=== PATIENT | male | born 1985 | race Caucasian/White ===

== ENCOUNTER 2017-11-05 15:00 | Observation (INO) ==
[2017-11-05] MEDS ORDERED: IOPAMIDOL 100 ML BOTTLE IJ ONE (15:01)
[2017-11-05] MEDS ORDERED: 0.9 % SODIUM CHLORIDE 1,000 ML IV ONE (15:06)
[2017-11-05] MEDS ORDERED: ONDANSETRON 4 MG/2 ML VIAL IV ONE (15:06)
[2017-11-05] MEDS: HYDROmorphone 2 MG/ML SYRINGE IV PRN ×3 (15:23→21:43)
[2017-11-05 16:03] LABS: Basophils # (Auto) 0 K/mcL (0.0-0.3); Basophils % (Auto) 0.1 % (0.0-2.0); Eosinophils # (Auto) 0.1 K/mcL (0.0-0.7); Eosinophils % (Auto) 0.6 % (0.0-7.0); Granulocytes % (Auto) 83.6 % (38.0-78.0); Lymphocytes # (Auto) 1.6 K/mcL (1.5-4.8); Lymphocytes % (Auto) 10.1 % (15.5-49.0); Mean Cell Volume 87.2 fL (80.0-100.0); Mean Corpuscular HGB Conc 34.2 g/dL (31.0-36.0); Mean Corpuscular Hemoglobin 29.8 pg (26.0-34.0); Monocytes # (Auto) 0.9 K/mcL (0.1-0.9); Monocytes % (Auto) 5.6 % (1.0-12.0); Platelet Count 212 K/mcL (140-440); RBC 5.01 M/mcL (4.50-5.90)
--- NOTE | 2017-11-05 16:19 | Cat Scan Report ---
CLINICAL INFORMATION: Reason for Exam:no oral contrast, rlq pain, poss appy COMPARISON: None. TECHNIQUE: Following injection of intravenous contrast the patient was scanned during the portal venous phase from the diaphragm through the symphysis pubis. Sagittal and coronal reformats were created.. FINDINGS: Patient has a short appendix which is thickened and contains a 6 mm appendicolith. The appendix is 11 mm in transverse dimension. There is no inflammation of the surrounding fat. No ascites or free intraperitoneal air present. There is also no abscess. The liver, spleen, gallbladder, pancreas adrenals and kidneys are normal. There is no kidney stone. Large and small bowel normal in caliber. No abnormality seen in the bladder, prostate or seminal vesicles. The aorta is normal in caliber and there is no plaque formation. There is moderately severe disc space narrowing at L5-S1 with gas in the nucleus pulposus due to chronic degeneration. Mild disc space narrowing is present at L4-5. IMPRESSION: Acute appendicitis Ana Kearns was called with results Interpreted and Authenticated by: Jose Morfin 11/05/17
[2017-11-05 16:20] LABS: ALT/SGPT 26 U/l (0-40); Albumin 4.9 gm/dL (3.2-5.2); Albumin/Globulin Ratio 1.8 (1.0-2.3); Alkaline Phosphatase 88 U/L (39-117); Blood Urea Nitrogen 13 mg/dl (6-20)
[2017-11-05] MEDS ORDERED: cefTRIAXone 1 GM VIAL IV ONE (16:26)
--- NOTE | 2017-11-05 16:29 | Emergency Department Note ---
Abdominal Pain HPI - General Chief Complaint: Abdominal Pain Stated Complaint: RLQ pain Time Seen by Provider: 11/05/17 15:06 Source: patient Mode of arrival: ambulatory Limitations: no limitations - History of Present Illness HPI Narrative: 32-year-old male presents with right lower quadrant pain. He woke up at about 1 or 2 this morning with right lower quadrant pain. Worse with movement. He states he did eat a little bit of soup at 1:00 today but definitely decreased appetite. No nausea or vomiting. Has felt warm but unknown fever. No chills. No dysuria or frequency. No hematuria. Nothing seems to make the pain better but is definitely worse with movement or palpation. He went to [facility] care and then was sent here for further evaluation. - Related Data Home Medications Medication Instructions Recorded Confirmed No Known Home Meds [No Known Home 11/05/17 11/05/17 Meds] Allergies Allergy/AdvReac Type Severity Reaction Status Date / Time No Known Drug Allergies Allergy Verified 11/05/17 15:03 Review of Systems All systems ED: reviewed and negative except as stated. Abdominal Pain PMH - Past Medical History Medical history: Reports: no medical history Surgical history ED: Reports: no surgical history - Social History Smoking status: Never smoker Alcohol use: Reports: Rarely Drug use: Reports: none Physical Exam Limitations: no limitations General appearance: alert, in no apparent distress Head: atraumatic, normocephalic, normal inspection Eye: Present: normal appearance. Absent: conjunctival injection ENT: mucous membranes moist Neck: Present: normal inspection, trachea midline. Absent: tenderness, lymphadenopathy Chest: Present: normal inspection, symmetric chest wall rise Respiratory: Present: normal lung sounds bilaterally. Absent: respiratory distress, accessory muscle use Cardiovascular: Present: regular rate, normal heart sounds Abdominal: Present: soft, tenderness (Right lower quadrant.), guarding (Right lower quadrant), rebound (Right lower quadrant), normal bowel sounds. Absent: distention, mass Extremities: Present: normal inspection Neurological: Present: alert, oriented X3, normal gait Psychiatric: Present: normal affect, normal mood Skin: Present: warm, dry, intact, normal color. Absent: rash, cyanosis, diaphoresis, erythema Course Course Narrative: White count elevated at 16. CT report shows appendicitis. Dr. Clemons contacted. Agrees to admit patient for appendicitis. Vital Signs Temperature 98.6 F 11/05/17 15:03 Pulse Rate 79 11/05/17 15:03 Respiratory Rate 18 11/05/17 15:03 Blood Pressure 149/95 11/05/17 15:03 Pulse Oximetry (%) 100 11/05/17 15:03 Temperature 98.6 F 11/05/17 15:03 Pulse Rate 79 11/05/17 15:03 Respiratory Rate 18 11/05/17 15:03 Blood Pressure 149/95 11/05/17 15:03 Pulse Oximetry (%) 100 11/05/17 15:03 Abdominal Pain - Lab Data Result diagrams: 11/05/17 15:22 11/05/17 15:22 Lab Results 11/05/17 11/05/17 Range/Units 15:22 15:22 WBC 16.1 H (4.5-11.0) K/mcL RBC 5.01 (4.50-5.90) M/mcL Hgb 14.9 (13.5-16.5) g/dL Hct 43.7 (41.0-55.0) % MCV 87.2 (80.0-100.0) fL MCH 29.8 (26.0-34.0) pg MCHC 34.2 (31.0-36.0) g/dL RDW 12.0 (11.5-14.5) % Plt Count 212 (140-440) K/mcL MPV 8.4 (7.4-10.4) fL Gran % 83.6 H (38.0-78.0) % Lymph % (Auto) 10.1 L (15.5-49.0) % [place] % (Auto) 5.6 (1.0-12.0) % Eos % (Auto) 0.6 (0.0-7.0) % Baso % (Auto) 0.1 (0.0-2.0) % Gran # 13.4 H (1.8-8.0) K/mcL Lymph # (Auto) 1.6 (1.5-4.8) K/mcL [place] # (Auto) 0.9 (0.1-0.9) K/mcL Eos # (Auto) 0.1 (0.0-0.7) K/mcL Baso # (Auto) 0 (0.0-0.3) K/mcL Sodium 139 (133-145) mmol/L Potassium 3.8 (3.3-5.1) mmol/L Chloride 101 (96-108) mmol/L Carbon Dioxide 27 (22-30) mmol/L Anion Gap 11.0 (8-16) BUN 13 (6-20) mg/dl Creatinine 0.8 (0.7-1.2) mg/dl GFR Calculation 117 Glucose 101 (70-105) mg/dL Calcium 9.4 (8.6-10.4) mg/dl Total Bilirubin 0.7 (0.0-1.0) mg/dL AST 21 (0-37) U/l ALT 26 (0-40) U/l Alkaline Phosphatase 88 (39-117) U/L Total Protein 7.6 (5.9-8.4) gm/dL Albumin 4.9 (3.2-5.2) gm/dL Globulin 2.7 (2.2-3.7) gm/dL Albumin/Globulin Ratio 1.8 (1.0-2.3) Disposition 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
[2017-11-05] MEDS: ONDANSETRON 4 MG/2 ML VIAL IV PRN ×2 (17:37→21:42)
--- NOTE | 2017-11-05 18:55 | General Surg History&Physical ---
History of Present Illness Patient information: Note initiated : 11/05/17 at 6:53 pm Service Date, if different from initiated Date: [] Patient: Isidro Adams a 32 y/o M admitted on 11/05/17 for RLQ pain. Chief Complaint: [Right lower quadrant pain] HPI: Mr. Adams is a 32 year old M with history of acute onset of severe right sided abdominal pain about 3 AM. This was associated with nausea but no vomiting. The patient became more severe and he was seen in minor care and referred to the emergency room. He was noted to have a tender abdomen in the right lower quadrant with white blood count of 13,[address] evidence of appendicitis. He has significant right lower quadrant tenderness with guarding. He is admitted and will have appendectomy in the morning Review of Systems - Musculoskeletal back pain, radiating pain into limb Past History Past medical history: No chronic medical illness Past surgical history: No surgical procedures Past family history: Father age 62 with history of coronary artery disease Mother age 66 without illness Siblings alive and well without illness Past social history: Never smoker Occasional alcohol use Never drug use Employed Medications and Allergies Home Medications Medication Instructions Recorded Confirmed Type No Known Home Meds [No Known Home 11/05/17 11/05/17 History Meds] Allergies Allergy/AdvReac Type Severity Reaction Status Date / Time No Known Drug Allergies Allergy Verified 11/05/17 15:03 Exam Temp Pulse Resp BP Pulse Ox 98.1 F 65 16 149/88 100 11/05/17 17:47 11/05/17 17:04 11/05/17 17:47 11/05/17 17:47 11/05/17 17:47 - General physical appearance well developed, well nourished, no distress - Eyes PERRL, normal ocular movement - ENT normal pinna, normal nares, normal mucosa, no hearing loss, no congestion - Head Head exam IM: Present: atraumatic, normocephalic - Neck no masses, no bruits, trachea midline, no lymphadectomy, no venous distension - Cardiovascular Cardiovascular exam IM: Present: normal rate and rhythm - Respiratory normal expansion, normal respiratory effort, clear to percussion, clear to auscultation - Abdomen Abdomen: Present: soft, tender, bowel sounds, distended (Mild distention with good active bowel sounds; tenderness with guarding in right lower quadrant no palpable mass noted) Hernia: Present: none - Genitourinary Present: normal penis with no external lesions - Integumentary Present: no rash, no growths, no abnormal pigmentation - Neurologic Present: normal coordination, normal sensation - Musculoskeletal Present: normal gait, normal posture - Psychiatric Present: oriented to time, oriented to person, oriented to place, speech is normal, memory intact Assessment and Plan (1) Acute appendicitis Patient is made n.p.o. and started on antibiotics He is counseled for laparoscopic appendectomy in the morning. Status: Acute Qualifiers: Acute appendicitis type: with localized peritonitis Qualified Code(s): K35.3 - Acute appendicitis with localized peritonitis
[2017-11-05] MEDS: 0.9 % SODIUM CHLORIDE 1,000 ML IV SCH (19:44)
[2017-11-05] MEDS: cefTRIAXone 1 GM VIAL IV SCH (21:42)
[2017-11-06] MEDS: ONDANSETRON 4 MG/2 ML VIAL IV PRN ×2 (02:58→07:14)
[2017-11-06] MEDS: HYDROmorphone 2 MG/ML SYRINGE IV PRN ×8 (02:59→23:44)
[2017-11-06] MEDS: 0.9 % SODIUM CHLORIDE 1,000 ML IV SCH ×4 (03:02→21:51)
[2017-11-06] MEDS ORDERED: ROCURONIUM 10 MG/ML ML IV ONE (10:40)
[2017-11-06] MEDS ORDERED: PROPOFOL 200 MG/20 ML VIAL IV ONE (10:40)
[2017-11-06] MEDS ORDERED: DEXAMETHASONE 10 MG/ML VIAL IV ONE (10:40)
[2017-11-06] MEDS ORDERED: LIDOCAINE HCL/PF 100 MG/5 ML SYRINGE IV ONE (10:40)
[2017-11-06] MEDS ORDERED: KETOROLAC 30 MG/ML VIAL IV ONE (10:40)
[2017-11-06] MEDS ORDERED: MIDAZOLAM 5 MG/5 ML VIAL IV ONE (10:40)
[2017-11-06] MEDS ORDERED: ONDANSETRON 4 MG/2 ML VIAL IV ONE (10:40)
[2017-11-06] MEDS: cefTRIAXone 1 GM VIAL IV SCH (11:19)
--- NOTE | 2017-11-06 11:37 | Brief Operative Note ---
Date of procedure: 11/06/17 Pre-op diagnosis: acute appendicitis Post-op diagnosis: other (acute gangrenous appendicitis) Procedure: laparoscopic appendectomy Grafts/Implants: No Anesthesia: GETA Findings: acute gangrenous appendix without perforation or abscess Complications: none Surgeon: Jose D Clemons Estimated blood loss (cc): 10 Specimens Removed/Pathology: other (appendix) Condition: stable Disposition: PACU
[2017-11-06] MEDS ORDERED: ONDANSETRON 4 MG/2 ML VIAL IV PRN ×2 (11:44→12:06)
[2017-11-06] MEDS ORDERED: ATROPINE SULFATE 0.4 MG/ML VIAL IV PRN (12:06)
[2017-11-06] MEDS ORDERED: BENZOCAINE/MENTHOL 1 LOZENGE PO PRN (12:06)
[2017-11-06] MEDS ORDERED: ACETAMINOPHEN 1,000 MG/100 ML BOTTLE IV ONE (12:06)
[2017-11-06] MEDS ORDERED: diphenhydrAMINE 50 MG/ML VIAL IV PRN (12:06)
[2017-11-06] MEDS ORDERED: ePHEDrine 50 MG/ML AMPUL IV PRN (12:06)
[2017-11-06] MEDS ORDERED: METHOCARBAMOL 1,000 MG/10 ML VIAL IV PRN (12:06)
[2017-11-06] MEDS ORDERED: FLUMAZENIL 0.1 MG/ML ML IV PRN (12:06)
[2017-11-06] MEDS ORDERED: IPRATROPIUM/ALBUTEROL 3 ML AMPUL.NEB NEB PRN (12:06)
[2017-11-06] MEDS ORDERED: NALOXONE HCL 0.4 MG/ML VIAL IV PRN (12:06)
[2017-11-06] MEDS ORDERED: PROMETHAZINE 25 MG/ML VIAL IV PRN (12:06)
[2017-11-06] MEDS ORDERED: fentaNYL 100 MCG/2 ML VIAL IV PRN (12:06)
[2017-11-06] MEDS ORDERED: MEPERIDINE 25 MG/ML SYRINGE IV PRN (12:06)
[2017-11-06] MEDS: PIPERACILLIN SODIUM/TAZOBACTAM 3.375 GM in DEXTROSE 5% IN WATER 50 ML IV SCH ×3 (13:40→23:44)
[2017-11-06] MEDS: metroNIDAZOLE 500 MG/100 ML BAG IV SCH ×2 (14:40→21:52)
[2017-11-06] MEDS: 0.9 % SODIUM CHLORIDE 10 ML SYRINGE IV SCH ×2 (14:50→21:51)
[2017-11-07] MEDS: 0.9 % SODIUM CHLORIDE 1,000 ML IV SCH ×2 (02:47→12:27)
[2017-11-07] MEDS: HYDROmorphone 2 MG/ML SYRINGE IV PRN ×3 (02:57→08:03)
[2017-11-07] MEDS: PIPERACILLIN SODIUM/TAZOBACTAM 3.375 GM in DEXTROSE 5% IN WATER 50 ML IV SCH ×2 (05:29→12:28)
[2017-11-07] MEDS: 0.9 % SODIUM CHLORIDE 10 ML SYRINGE IV SCH ×2 (05:30→14:05)
[2017-11-07 05:59] LABS: Basophils # (Auto) 0 K/mcL (0.0-0.3); Basophils % (Auto) 0 % (0.0-2.0); Eosinophils # (Auto) 0 K/mcL (0.0-0.7); Eosinophils % (Auto) 0 % (0.0-7.0); Granulocytes % (Auto) 85.6 % (38.0-78.0); Lymphocytes # (Auto) 0.9 K/mcL (1.5-4.8); Lymphocytes % (Auto) 7.5 % (15.5-49.0); Mean Cell Volume 88.2 fL (80.0-100.0); Mean Corpuscular HGB Conc 34.5 g/dL (31.0-36.0); Mean Corpuscular Hemoglobin 30.4 pg (26.0-34.0); Monocytes # (Auto) 0.9 K/mcL (0.1-0.9); Monocytes % (Auto) 6.9 % (1.0-12.0); Platelet Count 150 K/mcL (140-440); RBC 3.82 M/mcL (4.50-5.90); Red Cell Distribution Width 12.3 % (11.5-14.5)
[2017-11-07] MEDS: metroNIDAZOLE 500 MG/100 ML BAG IV SCH ×2 (06:15→14:05)
[2017-11-07 06:33] LABS: ALT/SGPT 16 U/l (0-40); Albumin 3.8 gm/dL (3.2-5.2); Albumin/Globulin Ratio 1.9 (1.0-2.3); Alkaline Phosphatase 64 U/L (39-117); Bilirubin,Direct < 0.2 mg/dL (0.0-0.3); Blood Urea Nitrogen 12 mg/dl (6-20); Gamma Glutamyl Transpeptidase 43 U/L (8-61); Uric Acid 3.3 mg/dL (2.5-8.0)
--- NOTE | 2017-11-07 11:26 | Discharge Summary ---
Providers - Providers Patient information: Note initiated : 11/07/17 at 11:23 am Service Date, if different from initiated Date: [] Patient: Isidro Adams 32 y/o M admitted on 11/05/17 for RLQ Pain/Acute Appendicitis. Chief Complaint: [] Date of admission: 11/05/17 Discharge date: 11/07/17 Attending physician: Jose D Clemons Hospitalization Hospital course: 32-year-old male who is admitted with history of acute onset of right lower quadrant pain with associated nausea. He was noted to have leukocytosis and CT evidence of acute appendicitis. He had laparoscopy yesterday and was found to have an acute gangrenous appendix. He had successful appendectomy. He is doing well and is tolerating a diet. He is afebrile and his white blood count is down to 12,000. He is stable and is discharged home to have follow-up in the office in 2 weeks. Discharge diagnosis: Acute appendicitis Reason for admission: Right lower quadrant pain with appendicitis Procedures: Laparoscopic appendectomy Complications: None Exam Temp Pulse Resp BP Pulse Ox 97.9 F 50 L 16 112/64 97 11/07/17 06:35 11/07/17 06:35 11/07/17 06:35 11/07/17 06:35 11/07/17 06:35 - General physical appearance well developed, well nourished, no distress - Eyes PERRL, normal ocular movement - ENT normal pinna, normal nares, normal mucosa, no hearing loss, no congestion - Head Head exam IM: Present: atraumatic, normocephalic - Neck no masses, no bruits, trachea midline, no lymphadectomy, no venous distension - Cardiovascular Cardiovascular exam IM: Present: normal rate and rhythm - Respiratory normal expansion, normal respiratory effort, clear to percussion, clear to auscultation - Abdomen Abdomen: Present: soft, tender, bowel sounds, distended (Mild soreness around Port sites with active bowel sounds) Hernia: Present: none - Integumentary Present: no rash, no growths, no abnormal pigmentation - Neurologic Present: normal coordination (Is), normal sensation - Musculoskeletal Present: normal gait, normal posture - Psychiatric Present: oriented to time, oriented to person, oriented to place, speech is normal, memory intact Discharge Plan - Patient/Caregiver Discharge Instructions Activity: increase activity as tolerated Diet: Regular Diet Additional Instructions: Levaquin 500 mg daily 5 days Prescriptions: Levofloxacin [Levaquin] 500 mg PO DAILY #5 tab oxyCODONE HCL/ACETAMINOPHEN [Endocet 10-325 mg Tablet] 1 tab PO Q4H PRN #30 tab PRN Reason: Pain - Follow up Plan Follow up with: Mague Joseph MD [Physician] - 11/20/17 1:45 pm Disposition: Home, Self-Care Prognosis: Good Rehab Potential: Good I certify that the patient requires SNF services.: No Overall status at discharge: patient is not back to baseline Pending Studies Resuscitation Status Full Code Diet Full Liquid Diet Start Leora Nov 06 1614 Hydromorphone HCl (Dilaudid) 1 mg IV Q2HP PRN PRN Reason: PAIN LEVEL > 6 Last Admin: 11/07/17 08:03 Dose: 1 mg Admin: 11/07/17 05:35 Dose: 1 mg Admin: 11/07/17 02:57 Dose: 1 mg Admin: 11/06/17 23:44 Dose: 1 mg Admin: 11/06/17 19:30 Dose: 1 mg Admin: 11/06/17 17:25 Dose: 1 mg Admin: 11/06/17 14:10 Dose: 1 mg Sodium Chloride (Sodium Chloride 0.9%) 1,000 mls @ 125 mls/hr IV .Q8H [facility] Last Admin: 11/07/17 02:47 Dose: 125 mls/hr Admin: 11/06/17 21:51 Dose: Not Given Infusion: 11/06/17 20:44 Dose: 125 mls/hr Admin: 11/06/17 12:44 Dose: 125 mls/hr Metronidazole (Flagyl) 500 mg in 100 mls @ 100 mls/hr IV Q8H [facility] Last Infusion: 11/07/17 07:15 Dose: 0 mls/hr Admin: 11/07/17 06:15 Dose: 100 mls/hr Infusion: 11/06/17 22:52 Dose: 100 mls/hr Admin: 11/06/17 21:52 Dose: 100 mls/hr Infusion: 11/06/17 15:40 Dose: 100 mls/hr Admin: 11/06/17 14:40 Dose: 100 mls/hr Piperacillin Sod/Tazobactam (Sod 3.375 gm/ Dextrose) 50 mls @ 100 mls/hr IV Q6H DAX Last Infusion: 11/07/17 06:00 Dose: 0 mls/hr Admin: 11/07/17 05:29 Dose: 100 mls/hr Infusion: 11/07/17 00:14 Dose: 100 mls/hr Admin: 11/06/17 23:44 Dose: 100 mls/hr Infusion: 11/06/17 18:39 Dose: 100 mls/hr Admin: 11/06/17 18:09 Dose: 100 mls/hr Infusion: 11/06/17 14:10 Dose: 100 mls/hr Admin: 11/06/17 13:40 Dose: 100 mls/hr Ondansetron HCl (Zofran) 4 mg IV Q4-6HP PRN PRN Reason: Nausea And Vomiting Last Admin: 11/07/17 09:48 Dose: 4 mg Sodium Chloride (Saline Flush) 10 ml IV Q8 DAX Last Admin: 11/07/17 05:30 Dose: Not Given Admin: 11/06/17 21:51 Dose: Not Given Admin: 11/06/17 14:50 Dose: 10 ml Shift Summary 11/07/17 04:11 Shift Summary by Telma Claire&Albert4. VSS. 20 gauge to Rt. hand with NS at 125 ml/hr. 3 surgical incision sites with julia and Tegaderm in place, CDI. No drainage to sites at this time. Rcv'd Dilaudid 1mg IV x3 for abdominal pain. Up with SBA. Plan is to d/c home today. Initialized on 11/07/17 04:11 - END OF NOTE
--- NOTE | 2017-11-07 12:18 | Surgical Pathology Report ---
HISTOLOGY SPECIMEN MICROSCOPIC DIAGNOSIS APPENDIX, APPENDECTOMY: -- MARKED ACUTE APPENDICITIS WITH ACUTE SEROSITIS. (RLF:thadf) PROCEDURAL IMPRESSION Acute appendicitis. GROSS DESCRIPTION Received in formalin labeled with the patient information, is a blue-araujo appendix with the resection margin stapled. It is 9.4 cm in length by up to 0.9 cm in diameter. There is blue-araujo exudate on the surface. The resection margin is inked black. Cut surfaces show red-araujo fluid and araujo fecal material. Relief Pilot sections submitted in one cassette. (SCB:sln) Electronically Signed by: Meg Smith M.D.
[2017-11-07] MEDS ORDERED: oxyCODONE HCL 5 MG TABLET PO PRN (12:27)
--- NOTE | 2017-12-02 11:46 | Operative Note ---
DATE OF OPERATION: 11/06/2017 PREOPERATIVE DIAGNOSIS: Acute appendicitis. POSTOPERATIVE DIAGNOSIS: Acute appendicitis. PROCEDURE: Laparoscopic appendectomy. SURGEON: Jose D Clemons M.D. FINDINGS: Acute gangrenous appendix without perforation or abscess. DESCRIPTION: Under general anesthesia, the patient's abdomen was prepped and draped in the sterile field. Supraumbilical incision was made. Veress needle was inserted uneventfully. The abdomen was insufflated with 3 liters of CO2. A 12 mm port was placed. Laparoscope was placed. Under videoscopic guidance, a 5 mm port was placed in the suprapubic midline and a 12 mm port in the left lower quadrant. The patient was placed in deep Trendelenburg position and rotated to the left. The appendix was found at the base of the cecum. It was severely inflamed and gangrenous. It was grasped by the mesoappendix. A window was made at the base of the appendix, and an Endo AURELIO stapler was placed through this with transection of the appendix at the base. The mesoappendix was transected using an Endo AURELIO stapler. The appendix was placed in an EndoCatch device and retrieved. Copious irrigation was carried out. No drain was needed. The appendiceal stump was checked and was unremarkable. No drain was needed. CO2 was allowed to escape from the abdomen, and the ports were removed. Fascia at the umbilicus was closed with interrupted 0 Vicryl. Skin incisions were closed with julia. The patient tolerated the procedure well. Dressings were placed. He was awakened and transferred to a bed and taken to the postanesthetic care unit in stable, satisfactory condition. LCS:golden Job ID: [id number] Doc ID: [id number] Jose D Clemons M.D.
== END 2017-11-07 16:55 | disposition home or self-care (01) ==
LOC: ED 15:00 → MEDSUR 15:00
PROVIDERS: ADMIT Family Medicine Adult Medicine; ATTEND Family Medicine Adult Medicine
PROC: LAPAPPY (ICD-10-PCS; 2017-11-06 10:38)